=== PATIENT | male | born 1960 | race American Indian/Alaskan Native ===

== ENCOUNTER 2020-11-08 09:54 | Inpatient (IN) | payer OTHER ==
[2020-11-08] MEDS ORDERED: cefTRIAXone/NS 2 GM/100 ML 2 GM/100 ML BAG IV ONE (10:34)
[2020-11-08] MEDS ORDERED: AZITHROMYCIN/NS 500 MG/250 ML 500 MG/250 ML BAG IV ONE (10:34)
[2020-11-08] MEDS ORDERED: methylPREDNISolone Sod Succinate 125 MG/2 ML INJ IV ONE (10:40)
--- NOTE | 2020-11-08 10:44 | Emergency Department Report ---
ED Fever HPI - General Chief Complaint: Dyspnea/Respdistress Stated Complaint: SOB/COVID TEST NEGATIVE PUI?: Yes Time Seen by Provider: 11/08/20 10:24 Source: patient Exam Limitations: no limitations - History of Present Illness Initial Comments: Chief complaint: Trouble breathing not feeling well HPI: This is a 60-year-old healthy gentleman without significant past medical history who presents with fever chills fatigue shortness of breath cough since Wednesday. Gradual onset of illness 4 days ago. He obtained a saliva test for COVID-[address] a [address]-through center. Test was negative. He continued to have progression of symptoms including worsening shortness of breath and cough. He normally runs 6 to 7 miles daily. However he is unable to ambulate without severe shortness of breath. His brought him to the hospital. No known sick contacts. 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 He has had multiple contacts with customers. Oxygen saturation hypoxic at 89% room air in triage. Patient does not smoke tobacco. Timing/Duration: other (4 days beginning on Wednesday) Fever Severity/Quality: subjective Associated Symptoms: cough, shortness of breath, other (Fatigue) ED Review of Systems ROS: Stated complaint: SOB/COVID TEST NEGATIVE Other details as noted in HPI Comment: All other systems reviewed and negative Constitutional: chills, fever, malaise ENT: denies: throat pain Respiratory: cough, shortness of breath Cardiovascular: denies: chest pain Gastrointestinal: denies: abdominal pain, nausea, vomiting, diarrhea Neurological: denies: headache ED Past Medical Hx - Past Medical History Previous Medical History?: No - Surgical History Past Surgical History?: No - Social History Smoking Status: Never Smoker Substance Use Type: None ED Physical Exam - General Limitations: No Limitations General appearance: alert, in no apparent distress - Head Head exam: Present: atraumatic, normocephalic - Eye Eye exam: Present: normal appearance - ENT ENT exam: Present: mucous membranes moist - Neck Neck exam: Present: normal inspection, full ROM - Respiratory Respiratory exam: Present: rales (Faint rales inferior posterior thorax bilaterally). Absent: respiratory distress, wheezes - Cardiovascular Cardiovascular Exam: Present: regular rate, normal rhythm, normal heart sounds. Absent: systolic murmur, diastolic murmur, rubs, gallop - GI/Abdominal GI/Abdominal exam: Present: soft, normal bowel sounds. Absent: distended, tenderness, guarding, rebound - Rectal Rectal exam: Present: deferred - Extremities Exam Extremities exam: Present: normal inspection - Neurological Exam Neurological exam: Present: alert, oriented X3 - Psychiatric Psychiatric exam: Present: normal affect, normal mood - Skin Skin exam: Present: warm, dry, intact, normal color. Absent: rash ED Course Vital Signs 11/08/20 10:00 Temperature 98.3 F Pulse Rate 84 Respiratory 18 Rate Blood Pressure 104/78 O2 Sat by Pulse 89 Oximetry ED Medical Decision Making - Lab Data Result diagrams: 11/08/20 11:16 11/08/20 11:16 - Radiology Data Radiology results: report reviewed, image reviewed CHEST 1 VIEW INDICATION: shortness of breath. COMPARISON: None FINDINGS: Support devices: None. Heart: Within normal limits. Lungs/Pleura: Scattered bilateral lung opacities are identified. No pleural effusion or pneumothorax. Additional findings: None. IMPRESSION: Scattered bilateral lung opacities concerning for atypical pneumonia or viral infection - Medical Decision Making Acute respiratory failure hypoxia due to suspected COVID-19 infection. Patient treated with IV antibiotics and IV steroids in the emergency department. Appropriate precautions instituted I encouraged him to instruct his and work colleagues to obtain testing for COVID-19. Patient admitted to the hospital service in fair condition. Oxygen saturation 94% on nasal cannula. Upon lab review CBC chemistry within normal limits. Covid markers ferritin LDH CRP D-dimer all elevated. I do not suspect the presence of VTE at this moment. Patient does not have tachycardia or pleuritic chest pain. Patient does not have limb pain or swelling. Patient's oxygen saturation is currently 99% on nasal cannula. Critical care attestation.: If time is entered above; I have spent that time in minutes in the direct care of this critically ill patient, excluding procedure time. ED Disposition Clinical Impression: Acute respiratory failure with hypoxia, Suspected COVID-19 virus infection, Multifocal pneumonia Disposition: OP ADMIT IP TO THIS HOSP Is pt being admited?: Yes Does the pt Need Aspirin: No Condition: Stable Instructions: Bacterial Pneumonia (ED)
--- NOTE | 2020-11-08 10:53 | XRay Report ---
CHEST 1 VIEW INDICATION: shortness of breath. COMPARISON: None FINDINGS: Support devices: None. Heart: Within normal limits. Lungs/Pleura: Scattered bilateral lung opacities are identified. No pleural effusion or pneumothorax. Additional findings: None. IMPRESSION: Scattered bilateral lung opacities concerning for atypical pneumonia or viral infection. Signer Name: Jose Luis Kaur Jr, MD Signed: 11/08/2020 10:48 AM Workstation Name: [id number]
[2020-11-08 11:45] LABS: Basophils % (Auto) 0.1 % (0.0-1.8); Eosinophils % (Auto) 0.1 % (0.0-4.3); Hematocrit 43.4 % (35.5-45.6); Hemoglobin 14.3 gm/dl (11.8-15.2); Lymphocytes # (Auto) 0.5 K/mm3 (1.2-5.4); Lymphocytes % (Auto) 8.8 % (13.4-35.0); Mean Corpuscular HGB Conc 33 % (32-34); Mean Corpuscular Volume 85 fl (84-94); Monocytes # (Auto) 0.3 K/mm3 (0.0-0.8); Monocytes % (Auto) 4.8 % (0.0-7.3); Platelet Count 315 K/mm3 (140-440); Red Blood Count 5.11 M/mm3 (3.65-5.03); Red Cell Distribution Width 13.5 % (13.2-15.2)
[2020-11-08 12:10] LABS: C-Reactive Protein 12.1 mg/dL (0.00-1.30)
[2020-11-08 12:12] LABS: Alanine Aminotransferase 20 units/L (7-56); Albumin 3.1 g/dL (3.9-5); BUN/Creatinine Ratio 16; Blood Urea Nitrogen 16 mg/dL (9-20); Calcium 9.1 mg/dL (8.4-10.2); Hemolysis Index 1
--- NOTE | 2020-11-08 19:10 | History and Physical Report ---
History of Present Illness Date of examination: 11/08/20 Date of admission: 11/08/20 13:00 Chief complaint: Cough and fever History of present illness: 60-year-old healthy gentleman without significant past medical history who presents with fever chills fatigue shortness of breath cough since Wednesday- 10/28/20. Gradual onset of illness 4 days ago. He obtained a saliva test for COVID-19 at a drive-through center. Test was negative. He continued to have progression of symptoms including worsening shortness of breath and cough. He normally runs 6 to 7 miles daily. However he is unable to ambulate without severe shortness of breath. His brought him to the hospital. No known sick contacts. 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 He has had multiple co ntacts with customers. Oxygen saturation hypoxic at 89% room air in triage. Patient does not smoke tobacco. Timing/Duration: other (4 days beginning on Wednesday) Fever Severity/Quality: subjective Associated Symptoms: cough, shortness of breath, other (Fatigue) - Past Medical History Previous Medical History?: No - Surgical History Past Surgical History?: No - Social History Smoking Status: Never Smoker Substance Use Type: None Family Hx Htn Review of Systems ROS: Stated complaint: SOB/COVID TEST NEGATIVE Other details as noted in HPI Comment: All other systems reviewed and negative Constitutional: chills, fever, malaise ENT: denies: throat pain Respiratory: cough, shortness of breath Cardiovascular: denies: chest pain Gastrointestinal: denies: abdominal pain, nausea, vomiting, diarrhea Neurological: denies: headache Medications and Allergies Allergies Allergy/AdvReac Type Severity Reaction Status Date / Time No Known Allergies Allergy Verified 11/09/20 03:17 Exam - Constitutional Vitals: Temp Pulse Resp BP Pulse Ox 98.3 F 84 18 104/78 89 11/08/20 10:00 11/08/20 10:00 11/08/20 10:00 11/08/20 10:00 11/08/20 10:00 General appearance: Present: mild distress, well-nourished - EENT Eyes: Present: PERRL ENT: hearing intact, clear oral mucosa - Neck Neck: Present: supple, normal ROM - Respiratory Respiratory effort: normal Respiratory: bilateral: CTA - Cardiovascular Heart rate: 98 Rhythm: regular Heart Sounds: Present: S1 & S2. Absent: rub, click - Extremities Extremities: pulses symmetrical, No edema Peripheral Pulses: within normal limits - Abdominal General gastrointestinal: Present: soft, non-tender, non-distended, normal bowel sounds Male genitourinary: Present: normal - Integumentary Integumentary: Present: clear, warm, dry - Musculoskeletal Musculoskeletal: gait normal, strength equal bilaterally - Psychiatric Psychiatric: appropriate mood/affect, intact judgment & insight - Neurologic Neurologic: CNII-XII intact, moves all extremities - Allied Health Allied health notes reviewed: nursing, case management HEART Score - HEART Score Troponin: Troponin T < 0.010 ng/mL (0.00-0.029) 11/08/20 11:16 Results - Labs CBC & Chem 7: 11/09/20 06:09 11/09/20 06:09 Labs: Laboratory Last Values WBC 5.4 K/mm3 (4.5-11.0) 11/08/20 11:16 RBC 5.11 M/mm3 (3.65-5.03) H 11/08/20 11:16 Hgb 14.3 gm/dl (11.8-15.2) 11/08/20 11:16 Hct 43.4 % (35.5-45.6) 11/08/20 11:16 MCV 85 fl (84-94) 11/08/20 11:16 MCH 28 pg (28-32) 11/08/20 11:16 MCHC 33 % (32-34) 11/08/20 11:16 RDW 13.5 % (13.2-15.2) 11/08/20 11:16 Plt Count 315 K/mm3 (140-440) 11/08/20 11:16 Lymph % (Auto) 8.8 % (13.4-35.0) L 11/08/20 11:16 [place] % (Auto) 4.8 % (0.0-7.3) 11/08/20 11:16 Eos % (Auto) 0.1 % (0.0-4.3) 11/08/20 11:16 Baso % (Auto) 0.1 % (0.0-1.8) 11/08/20 11:16 Lymph # (Auto) 0.5 K/mm3 (1.2-5.4) L 11/08/20 11:16 [place] # (Auto) 0.3 K/mm3 (0.0-0.8) 11/08/20 11:16 Eos # (Auto) 0.0 K/mm3 (0.0-0.4) 11/08/20 11:16 Baso # (Auto) 0.0 K/mm3 (0.0-0.1) 11/08/20 11:16 Seg Neutrophils % 86.2 % (40.0-70.0) H 11/08/20 11:16 Seg Neutrophils # 4.7 K/mm3 (1.8-7.7) 11/08/20 11:16 D-Dimer 510.39 ng/mlDDU (0-234) H 11/08/20 11:16 Sodium 139 mmol/L (137-145) 11/08/20 11:16 Potassium 4.1 mmol/L (3.6-5.0) 11/08/20 11:16 Chloride 100.4 mmol/L (98-107) 11/08/20 11:16 Carbon Dioxide 28 mmol/L (22-30) 11/08/20 11:16 Anion Gap 15 mmol/L 11/08/20 11:16 BUN 16 mg/dL (9-20) 11/08/20 11:16 Creatinine 1.0 mg/dL (0.8-1.3) 11/08/20 11:16 Estimated GFR > 60 ml/min 11/08/20 11:16 BUN/Creatinine Ratio 16 % 11/08/20 11:16 Glucose 100 mg/dL (75-100) 11/08/20 11:16 Calcium 9.1 mg/dL (8.4-10.2) 11/08/20 11:16 Ferritin 539.0 ng/mL (30.0-300.0) H 11/08/20 11:16 Total Bilirubin 0.30 mg/dL (0.1-1.2) 11/08/20 11:16 AST 29 units/L (5-40) 11/08/20 11:16 ALT 20 units/L (7-56) 11/08/20 11:16 Alkaline Phosphatase 44 units/L (35-129) 11/08/20 11:16 Lactate Dehydrogenase 426 units/L (91-180) H 11/08/20 11:16 Troponin T < 0.010 ng/mL (0.00-0.029) 11/08/20 11:16 C-Reactive Protein 12.10 mg/dL (0.00-1.30) H 11/08/20 11:16 Total Protein 6.9 g/dL (6.3-8.2) 11/08/20 11:16 Albumin 3.1 g/dL (3.9-5) L 11/08/20 11:16 Albumin/Globulin Ratio 0.8 % 11/08/20 11:16 Procalcitonin 0.17 ng/mL (<0.15) 11/08/20 11:16 Microbiology: Microbiology 11/08/20 11:25 Peripheral/Venous Blood Culture - Preliminary Culture in Progress 11/08/20 11:16 Peripheral/Venous Blood Culture - Preliminary Culture in Progress - Imaging and Cardiology Chest x-ray: report reviewed (Bilateral pneumonia) Harris/IV: IV Catheter Type [Left INT / Saline Lock Antecubital] Assessment and Plan Advance Directives: Yes - Patient Problems (1) Acute respiratory failure with hypoxia Current Visit: Yes Status: Acute Plan to address problem: Oxygen supplements as necessary (2) Multifocal pneumonia Current Visit: Yes Status: Acute Plan to address problem: possible covid pneumonia Empiric Abx started (3) Suspected COVID-19 virus infection Current Visit: Yes Status: Acute Plan to address problem: [place] virus pcr for AM IV Decadron started (4) DVT prophylaxis Current Visit: Yes Status: Acute Plan to address problem: On Lovenox 40 mg SQ Qhs
[2020-11-09] MEDS ORDERED: HYDROmorphone 1 MG/1 ML INJ IV PRN (03:11)
[2020-11-09] MEDS ORDERED: ONDANSETRON 4 MG/2 ML INJ IV PRN (03:11)
[2020-11-09] MEDS ORDERED: ACETAMINOPHEN 325 MG TAB PO PRN (03:11)
[2020-11-09] MEDS ORDERED: oxyCODONE /ACETAMINOPHEN 5-325MG TAB PO PRN (03:11)
[2020-11-09 06:29] LABS: Basophils % (Auto) 0.3 % (0.0-1.8); Hematocrit 43.5 % (35.5-45.6); Hemoglobin 14.3 gm/dl (11.8-15.2); Lymphocytes # (Auto) 0.6 K/mm3 (1.2-5.4); Lymphocytes % (Auto) 11.1 % (13.4-35.0); Mean Corpuscular HGB Conc 33 % (32-34); Mean Corpuscular Volume 86 fl (84-94); Monocytes # (Auto) 0.4 K/mm3 (0.0-0.8); Monocytes % (Auto) 7.6 % (0.0-7.3); Platelet Count 368 K/mm3 (140-440); Red Blood Count 5.09 M/mm3 (3.65-5.03); Red Cell Distribution Width 13.3 % (13.2-15.2)
[2020-11-09 06:51] LABS: BUN/Creatinine Ratio 23; Blood Urea Nitrogen 21 mg/dL (9-20); Calcium 8.9 mg/dL (8.4-10.2); Hemolysis Index 25
[2020-11-09] MEDS: cefTRIAXone/NS 2 GM/100 ML 2 GM/100 ML BAG IV SCH (09:01)
[2020-11-09] MEDS ORDERED: dexAMETHasone 4 MG/ML VIAL IV SCH (10:00)
--- NOTE | 2020-11-09 11:11 | Progress Note ---
Assessment and Plan - Patient Problems (1) Acute respiratory failure with hypoxia Current Visit: Yes Status: Acute Plan to address problem: Supplemental oxygen, pulse oximetry, nebulizer therapy, noninvasive positive pressure ventilation as clinically indicated. (2) Multifocal pneumonia Current Visit: Yes Status: Acute Plan to address problem: Pneumonia protocol: IV antibiotic therapy, CBC, supplemental oxygen, pulse oximetry, nebulizer therapy, supportive care. (3) Suspected COVID-19 virus infection Current Visit: Yes Status: Acute Plan to address problem: Contact precautions, isolation precautions, IV antibiotic therapy, IV steroid therapy, prone positioning while in bed, (4) DVT prophylaxis Current Visit: Yes Status: Acute Plan to address problem: SCD to bilateral lower extremities while in bed, prophylactic anticoagulation (5) Advance care planning Current Visit: Yes Status: Acute Plan to address problem: Disease education conducted, patient is full code, care plan discussed, prognosis discussed, patient knowledges understanding and agreement with care plan, +30 minutes. History Interval history: 60YO Male HD #2 with acute hypoxemic respiratory failure, coronavirus infection. Patient knowledges continued shortness of breath. Patient knowledges decreased exercise tolerance as well as dry cough. Patient denies fever at this time. No reported nursing events. Patient remains on submental oxygen at this time. Hospitalist Physical - Constitutional Vitals: Temp Pulse Resp BP Pulse Ox 98.7 F 55 L 18 110/71 93 11/09/20 03:50 11/09/20 03:50 11/09/20 03:50 11/09/20 03:50 11/09/20 03:50 General appearance: Present: mild distress, well-nourished - EENT Eyes: Present: PERRL, EOM intact - Neck Neck: Present: supple - Respiratory Respiratory effort: labored, accessory muscle use Respiratory: bilateral: diminished, rhonchi - Cardiovascular Rhythm: regular Heart Sounds: Present: S1 & S2 - Extremities Extremities: no ischemia Peripheral Pulses: within normal limits - Abdominal General gastrointestinal: soft, non-tender, non-distended - Integumentary Integumentary: Present: clear, dry - Psychiatric Psychiatric: appropriate mood/affect, cooperative - Neurologic Neurologic: CNII-XII intact HEART Score - HEART Score Troponin: Troponin T < 0.010 ng/mL (0.00-0.029) 11/08/20 11:16 Results - Labs CBC & Chem 7: 11/09/20 06:09 11/09/20 06:09 Labs: Laboratory Last Values WBC 5.0 K/mm3 (4.5-11.0) 11/09/20 06:09 RBC 5.09 M/mm3 (3.65-5.03) H 11/09/20 06:09 Hgb 14.3 gm/dl (11.8-15.2) 11/09/20 06:09 Hct 43.5 % (35.5-45.6) 11/09/20 06:09 MCV 86 fl (84-94) 11/09/20 06:09 MCH 28 pg (28-32) 11/09/20 06:09 MCHC 33 % (32-34) 11/09/20 06:09 RDW 13.3 % (13.2-15.2) 11/09/20 06:09 Plt Count 368 K/mm3 (140-440) 11/09/20 06:09 Lymph % (Auto) 11.1 % (13.4-35.0) L 11/09/20 06:09 [place] % (Auto) 7.6 % (0.0-7.3) H 11/09/20 06:09 Eos % (Auto) 0.0 % (0.0-4.3) 11/09/20 06:09 Baso % (Auto) 0.3 % (0.0-1.8) 11/09/20 06:09 Lymph # (Auto) 0.6 K/mm3 (1.2-5.4) L 11/09/20 06:09 [place] # (Auto) 0.4 K/mm3 (0.0-0.8) 11/09/20 06:09 Eos # (Auto) 0.0 K/mm3 (0.0-0.4) 11/09/20 06:09 Baso # (Auto) 0.0 K/mm3 (0.0-0.1) 11/09/20 06:09 Seg Neutrophils % 81.0 % (40.0-70.0) H 11/09/20 06:09 Seg Neutrophils # 4.0 K/mm3 (1.8-7.7) 11/09/20 06:09 D-Dimer 510.39 ng/mlDDU (0-234) H 11/08/20 11:16 Sodium 141 mmol/L (137-145) 11/09/20 06:09 Potassium 4.8 mmol/L (3.6-5.0) 11/09/20 06:09 Chloride 104.2 mmol/L (98-107) 11/09/20 06:09 Carbon Dioxide 23 mmol/L (22-30) 11/09/20 06:09 Anion Gap 19 mmol/L 11/09/20 06:09 BUN 21 mg/dL (9-20) H 11/09/20 06:09 Creatinine 0.9 mg/dL (0.8-1.3) 11/09/20 06:09 Estimated GFR > 60 ml/min 11/09/20 06:09 BUN/Creatinine Ratio 23 % 11/09/20 06:09 Glucose 104 mg/dL (75-100) H 11/09/20 06:09 Hemoglobin A1c 6.1 % (4-6) H 11/09/20 06:09 Calcium 8.9 mg/dL (8.4-10.2) 11/09/20 06:09 Ferritin 539.0 ng/mL (30.0-300.0) H 11/08/20 11:16 Total Bilirubin 0.30 mg/dL (0.1-1.2) 11/08/20 11:16 AST 29 units/L (5-40) 11/08/20 11:16 ALT 20 units/L (7-56) 11/08/20 11:16 Alkaline Phosphatase 44 units/L (35-129) 11/08/20 11:16 Lactate Dehydrogenase 426 units/L (91-180) H 11/08/20 11:16 Troponin T < 0.010 ng/mL (0.00-0.029) 11/08/20 11:16 C-Reactive Protein 12.10 mg/dL (0.00-1.30) H 11/08/20 11:16 Total Protein 6.9 g/dL (6.3-8.2) 11/08/20 11:16 Albumin 3.1 g/dL (3.9-5) L 11/08/20 11:16 Albumin/Globulin Ratio 0.8 % 11/08/20 11:16 Procalcitonin 0.17 ng/mL (<0.15) 11/08/20 11:16 Microbiology: Microbiology 11/08/20 11:25 Peripheral/Venous Blood Culture - Preliminary Culture in Progress 11/08/20 11:16 Peripheral/Venous Blood Culture - Preliminary Culture in Progress Harris/IV: Voiding Method Toilet IV Catheter Type [Left INT / Saline Lock Antecubital] Active Medications - Current Medications Current Medications: Generic Name Dose Route Start Last Admin Trade Name Freq PRN Reason Stop Dose Admin Acetaminophen 650 mg 11/09/20 03:11 Acetaminophen 325 Mg Tab PO Q4H PRN Pain MILD(1-3)/Fever >100.5/BRITO Ascorbic Acid 1,000 mg 11/09/20 11:00 Ascorbic Acid 500 Mg Tab PO BID [facility] Cholecalciferol 5,000 unit 11/09/20 11:00 Cholecalciferol (Vit D3) 5,000 Unit Tab PO DAILY [facility] Dexamethasone 8 mg 11/09/20 10:00 11/09/20 09:01 Dexamethasone 4 Mg/Ml Vial IV 8 mg Q24HR [facility] Administration Hydromorphone HCl 0.5 mg 11/09/20 03:11 Hydromorphone 1 Mg/1 Ml Inj IV Q3H PRN Pain , Severe (7-10) Ceftriaxone Sodium 2 gm in 100 mls @ 200 mls/hr 11/09/20 10:00 11/09/20 09:01 Rocephin/Ns 2 Gm/100 Ml IV 200 mls/hr Q24HR [facility] Administration Protocol Azithromycin 500 mg in 250 mls @ 250 mls/hr 11/09/20 12:00 Zithromax/Ns IV Q24H [facility] Ondansetron HCl 4 mg 11/09/20 03:11 Ondansetron 4 Mg/2 Ml Inj IV Q8H PRN Nausea And Vomiting Oxycodone/Acetaminophen 1 tab 11/09/20 03:11 Oxycodone /Acetaminophen 5-325mg Tab PO Q6H PRN Pain, Moderate (4-6) Sodium Chloride 10 ml 11/09/20 10:00 11/09/20 09:08 Sodium Chloride 0.9% 10 Ml Flush Syringe IV 10 ml BID NURA Administration Sodium Chloride 10 ml 11/09/20 03:11 Sodium Chloride 0.9% 10 Ml Flush Syringe IV PRN PRN LINE FLUSH Zinc Sulfate 220 mg 11/09/20 11:00 Zinc Sulfate 220 Mg Cap PO BID [facility]
[2020-11-09] MEDS ORDERED: methylPREDNISolone Sod Succinate 40 MG/1 ML INJ IV SCH (14:00)
[2020-11-09] MEDS: ZINC SULFATE 220 MG CAP PO SCH ×2 (15:21→21:19)
[2020-11-09] MEDS: CHOLECALCIFEROL (VIT D3) 5,000 UNIT TAB PO SCH (15:21)
[2020-11-09] MEDS: AZITHROMYCIN/NS 500 MG/250 ML 500 MG/250 ML BAG IV SCH (15:22)
[2020-11-09] MEDS: ASCORBIC ACID 500 MG TAB PO SCH ×2 (15:22→21:19)
[2020-11-09] MEDS: methylPREDNISolone Sod Succinate 40 MG/1 ML INJ IV SCH (21:19)
[2020-11-09] MEDS: HEPARIN 5,000 UNIT/1 ML VIAL SUB-Q SCH (21:20)
[2020-11-10] MEDS: methylPREDNISolone Sod Succinate 40 MG/1 ML INJ IV SCH ×3 (06:07→23:17)
--- NOTE | 2020-11-10 11:46 | Progress Note ---
Assessment and Plan - Patient Problems (1) Acute respiratory failure with hypoxia Current Visit: Yes Status: Acute Plan to address problem: Supplemental oxygen, pulse oximetry, nebulizer therapy, noninvasive positive pressure ventilation as clinically indicated. (2) Multifocal pneumonia Current Visit: Yes Status: Acute Plan to address problem: Pneumonia protocol: IV antibiotic therapy, CBC, supplemental oxygen, pulse oximetry, nebulizer therapy, supportive care. (3) Suspected COVID-19 virus infection Current Visit: Yes Status: Acute Plan to address problem: Contact precautions, isolation precautions, IV antibiotic therapy, IV steroid therapy, prone positioning while in bed, (4) DVT prophylaxis Current Visit: Yes Status: Acute Plan to address problem: SCD to bilateral lower extremities while in bed, prophylactic anticoagulation (5) Advance care planning Current Visit: Yes Status: Acute Plan to address problem: Disease education conducted, patient is full code, care plan discussed, prognosis discussed, patient knowledges understanding and agreement with care plan, +30 minutes. History Interval history: 60YO Male HD #3 with acute hypoxemic respiratory failure, coronavirus infection. Patient still acknowledges continued shortness of breath. Patient acknowledges mild improvement in symptoms overnight.. Patient denies fever at this time. No reported nursing events. Patient remains on supplemental oxygen at this time. Hospitalist Physical - Constitutional Vitals: Temp Pulse Resp BP Pulse Ox 98.7 F 52 L 20 115/69 95 11/10/20 06:22 11/10/20 06:22 11/10/20 06:22 11/10/20 06:22 11/10/20 06:22 General appearance: Present: mild distress, well-nourished - EENT Eyes: Present: PERRL, EOM intact ENT: hearing intact - Neck Neck: Present: supple - Respiratory Respiratory effort: labored Respiratory: bilateral: diminished, rhonchi - Cardiovascular Rhythm: regular Heart Sounds: Present: S1 & S2 - Extremities Extremities: no ischemia Peripheral Pulses: within normal limits - Abdominal General gastrointestinal: soft, non-tender, non-distended - Integumentary Integumentary: Present: clear, dry - Psychiatric Psychiatric: appropriate mood/affect, cooperative - Neurologic Neurologic: CNII-XII intact HEART Score - HEART Score Troponin: Troponin T < 0.010 ng/mL (0.00-0.029) 11/08/20 11:16 Results - Labs CBC & Chem 7: 11/09/20 06:09 11/09/20 06:09 Labs: Laboratory Last Values WBC 5.0 K/mm3 (4.5-11.0) 11/09/20 06:09 RBC 5.09 M/mm3 (3.65-5.03) H 11/09/20 06:09 Hgb 14.3 gm/dl (11.8-15.2) 11/09/20 06:09 Hct 43.5 % (35.5-45.6) 11/09/20 06:09 MCV 86 fl (84-94) 11/09/20 06:09 MCH 28 pg (28-32) 11/09/20 06:09 MCHC 33 % (32-34) 11/09/20 06:09 RDW 13.3 % (13.2-15.2) 11/09/20 06:09 Plt Count 368 K/mm3 (140-440) 11/09/20 06:09 Lymph % (Auto) 11.1 % (13.4-35.0) L 11/09/20 06:09 [place] % (Auto) 7.6 % (0.0-7.3) H 11/09/20 06:09 Eos % (Auto) 0.0 % (0.0-4.3) 11/09/20 06:09 Baso % (Auto) 0.3 % (0.0-1.8) 11/09/20 06:09 Lymph # (Auto) 0.6 K/mm3 (1.2-5.4) L 11/09/20 06:09 [place] # (Auto) 0.4 K/mm3 (0.0-0.8) 11/09/20 06:09 Eos # (Auto) 0.0 K/mm3 (0.0-0.4) 11/09/20 06:09 Baso # (Auto) 0.0 K/mm3 (0.0-0.1) 11/09/20 06:09 Seg Neutrophils % 81.0 % (40.0-70.0) H 11/09/20 06:09 Seg Neutrophils # 4.0 K/mm3 (1.8-7.7) 11/09/20 06:09 D-Dimer 510.39 ng/mlDDU (0-234) H 11/08/20 11:16 Sodium 141 mmol/L (137-145) 11/09/20 06:09 Potassium 4.8 mmol/L (3.6-5.0) 11/09/20 06:09 Chloride 104.2 mmol/L (98-107) 11/09/20 06:09 Carbon Dioxide 23 mmol/L (22-30) 11/09/20 06:09 Anion Gap 19 mmol/L 11/09/20 06:09 BUN 21 mg/dL (9-20) H 11/09/20 06:09 Creatinine 0.9 mg/dL (0.8-1.3) 11/09/20 06:09 Estimated GFR > 60 ml/min 11/09/20 06:09 BUN/Creatinine Ratio 23 % 11/09/20 06:09 Glucose 104 mg/dL (75-100) H 11/09/20 06:09 Hemoglobin A1c 6.1 % (4-6) H 11/09/20 06:09 Calcium 8.9 mg/dL (8.4-10.2) 11/09/20 06:09 Ferritin 539.0 ng/mL (30.0-300.0) H 11/08/20 11:16 Total Bilirubin 0.30 mg/dL (0.1-1.2) 11/08/20 11:16 AST 29 units/L (5-40) 11/08/20 11:16 ALT 20 units/L (7-56) 11/08/20 11:16 Alkaline Phosphatase 44 units/L (35-129) 11/08/20 11:16 Lactate Dehydrogenase 426 units/L (91-180) H 11/08/20 11:16 Troponin T < 0.010 ng/mL (0.00-0.029) 11/08/20 11:16 C-Reactive Protein 12.10 mg/dL (0.00-1.30) H 11/08/20 11:16 Total Protein 6.9 g/dL (6.3-8.2) 11/08/20 11:16 Albumin 3.1 g/dL (3.9-5) L 11/08/20 11:16 Albumin/Globulin Ratio 0.8 % 11/08/20 11:16 Procalcitonin 0.17 ng/mL (<0.15) 11/08/20 11:16 Coronavirus (PCR) Positive (Negative) A 11/09/20 10:25 Microbiology: Microbiology 11/08/20 11:16 Peripheral/Venous Blood Culture - Preliminary NO GROWTH AFTER 48 HOURS 11/08/20 11:25 Peripheral/Venous Blood Culture - Preliminary NO GROWTH AFTER 48 HOURS Harris/IV: Voiding Method Toilet IV Catheter Type [Left INT / Saline Lock Antecubital] Active Medications - Current Medications Current Medications: Generic Name Dose Route Start Last Admin Trade Name Freq PRN Reason Stop Dose Admin Acetaminophen 650 mg 11/09/20 03:11 Acetaminophen 325 Mg Tab PO Q4H PRN Pain MILD(1-3)/Fever >100.5/BRITO Ascorbic Acid 1,000 mg 11/09/20 11:00 11/09/20 21:19 Ascorbic Acid 500 Mg Tab PO 1,000 mg BID NURA Administration Cholecalciferol 5,000 unit 11/09/20 11:00 11/09/20 15:21 Cholecalciferol (Vit D3) 5,000 Unit Tab PO 5,000 unit DAILY NURA Administration Heparin Sodium (Porcine) 5,000 unit 11/09/20 22:00 11/09/20 21:20 Heparin 5,000 Unit/1 Ml Vial SUB-Q 5,000 unit Q12HR NURA Administration Hydromorphone HCl 0.5 mg 11/09/20 03:11 Hydromorphone 1 Mg/1 Ml Inj IV Q3H PRN Pain , Severe (7-10) Ceftriaxone Sodium 2 gm in 100 mls @ 200 mls/hr 11/09/20 10:00 11/09/20 09:01 Rocephin/Ns 2 Gm/100 Ml IV 200 mls/hr Q24HR NURA Administration Protocol Azithromycin 500 mg in 250 mls @ 250 mls/hr 11/09/20 12:00 11/09/20 15:22 Zithromax/Ns IV 250 mls/hr Q24H NURA Administration Methylprednisolone Sodium Succinate 40 mg 11/09/20 22:00 11/10/20 06:07 Methylprednisolone Sod Succinate 40 Mg/1 Ml Inj IV 40 mg Q8HR NURA Administration Ondansetron HCl 4 mg 11/09/20 03:11 Ondansetron 4 Mg/2 Ml Inj IV Q8H PRN Nausea And Vomiting Oxycodone/Acetaminophen 1 tab 11/09/20 03:11 Oxycodone /Acetaminophen 5-325mg Tab PO Q6H PRN Pain, Moderate (4-6) Sodium Chloride 10 ml 11/09/20 10:00 11/09/20 21:20 Sodium Chloride 0.9% 10 Ml Flush Syringe IV 10 ml BID NURA Administration Sodium Chloride 10 ml 11/09/20 03:11 Sodium Chloride 0.9% 10 Ml Flush Syringe IV PRN PRN LINE FLUSH Zinc Sulfate 220 mg 11/09/20 11:00 11/09/20 21:19 Zinc Sulfate 220 Mg Cap PO 220 mg BID NURA Administration
[2020-11-10] MEDS: CHOLECALCIFEROL (VIT D3) 5,000 UNIT TAB PO SCH (12:17)
[2020-11-10] MEDS: ASCORBIC ACID 500 MG TAB PO SCH ×2 (12:17→23:17)
[2020-11-10] MEDS: cefTRIAXone/NS 2 GM/100 ML 2 GM/100 ML BAG IV SCH (12:17)
[2020-11-10] MEDS: ZINC SULFATE 220 MG CAP PO SCH ×2 (12:17→23:18)
[2020-11-10] MEDS: HEPARIN 5,000 UNIT/1 ML VIAL SUB-Q SCH ×2 (12:18→23:16)
[2020-11-10] MEDS: AZITHROMYCIN/NS 500 MG/250 ML 500 MG/250 ML BAG IV SCH (13:17)
[2020-11-11] MEDS: methylPREDNISolone Sod Succinate 40 MG/1 ML INJ IV SCH ×3 (05:39→22:39)
[2020-11-11] MEDS: cefTRIAXone/NS 2 GM/100 ML 2 GM/100 ML BAG IV SCH (11:06)
[2020-11-11] MEDS: HEPARIN 5,000 UNIT/1 ML VIAL SUB-Q SCH ×2 (11:06→22:39)
[2020-11-11] MEDS: CHOLECALCIFEROL (VIT D3) 5,000 UNIT TAB PO SCH (11:06)
[2020-11-11] MEDS: ASCORBIC ACID 500 MG TAB PO SCH ×2 (11:06→22:39)
[2020-11-11] MEDS: ZINC SULFATE 220 MG CAP PO SCH ×2 (11:06→22:39)
[2020-11-11] MEDS: AZITHROMYCIN/NS 500 MG/250 ML 500 MG/250 ML BAG IV SCH (13:07)
--- NOTE | 2020-11-11 14:02 | Consultation ---
History of Present Illness - Reason for Consult Consult date: 11/11/20 COVID/hypoxia Requesting physician: ANA PAULA RODARTE - History of Present Illness 60 years old male without any significant medical history, admitted on 11/08/2020 secondary to 2-week history of cough and progressive shortness of breath associated with chills, fatigue. Initial COVID-19 saliva test was negative. Patient usually runs 6 to 7 miles a day. However patient is now short of breath with ambulation. On arrival, temperature 98.3, HR 84, RR 18, O2 sat 89%, BP 104/78. Initial CBC normal. Chemistry normal. D-dimer 510. Ferritin 539. Patient currently on 3 L nasal cannula. Blood culture no growth today. Chest x-ray with bilateral lung opacities. Review of Systems: reviewed ED and H&P notes. Review of system deferred to minimize COVID-19 transmission. Medications and Allergies Allergies Allergy/AdvReac Type Severity Reaction Status Date / Time No Known Allergies Allergy Verified 11/09/20 03:17 Home Medications Medication Instructions Recorded Confirmed Last Taken Type No Known Home Medications [No 11/09/20 11/09/20 Unknown History Reported Home Medications] Active Meds: Active Medications Acetaminophen (Acetaminophen 325 Mg Tab) 650 mg PO Q4H PRN PRN Reason: Pain MILD(1-3)/Fever >100.5/BRITO Ascorbic Acid (Ascorbic Acid 500 Mg Tab) 1,000 mg PO BID [facility] Last Admin: 11/11/20 11:06 Dose: 1,000 mg Documented by: Cholecalciferol (Cholecalciferol (Vit D3) 5,000 Unit Tab) 5,000 unit PO DAILY [facility] Last Admin: 11/11/20 11:06 Dose: 5,000 unit Documented by: Guaifenesin (Guaifenesin Dm 200/20 Mg Oral Liqd 10 Ml) 20 ml PO Q4H PRN PRN Reason: Cough Heparin Sodium (Porcine) (Heparin 5,000 Unit/1 Ml Vial) 5,000 unit SUB-Q Q12HR [facility] Last Admin: 11/11/20 11:06 Dose: 5,000 unit Documented by: Hydromorphone HCl (Hydromorphone 1 Mg/1 Ml Inj) 0.5 mg IV Q3H PRN PRN Reason: Pain , Severe (7-10) Ceftriaxone Sodium (Rocephin/Ns 2 Gm/100 Ml) 2 gm in 100 mls @ 200 mls/hr IV Q24HR [facility]; Protocol Stop: 11/12/20 10:29 Last Admin: 11/11/20 11:06 Dose: 200 mls/hr Documented by: Azithromycin (Zithromax/Ns) 500 mg in 250 mls @ 250 mls/hr IV Q24H [facility] Stop: 11/12/20 12:59 Last Admin: 11/11/20 13:07 Dose: 250 mls/hr Documented by: Methylprednisolone Sodium Succinate (Methylprednisolone Sod Succinate 40 Mg/1 Ml Inj) 40 mg IV Q8HR [facility] Last Admin: 11/11/20 13:07 Dose: 40 mg Documented by: Ondansetron HCl (Ondansetron 4 Mg/2 Ml Inj) 4 mg IV Q8H PRN PRN Reason: Nausea And Vomiting Oxycodone/Acetaminophen (Oxycodone /Acetaminophen 5-325mg Tab) 1 tab PO Q6H PRN PRN Reason: Pain, Moderate (4-6) Sodium Chloride (Sodium Chloride 0.9% 10 Ml Flush Syringe) 10 ml IV BID [facility] Last Admin: 11/11/20 11:07 Dose: 10 ml Documented by: Sodium Chloride (Sodium Chloride 0.9% 10 Ml Flush Syringe) 10 ml IV PRN PRN PRN Reason: LINE FLUSH Zinc Sulfate (Zinc Sulfate 220 Mg Cap) 220 mg PO BID [facility] Last Admin: 11/11/20 11:06 Dose: 220 mg Documented by: Physical Examination - Physical Exam Narrative exam: Physical exam deferred to minimize COVID-19 transmission during pandemic. ER and internal medicine physical examination notes reviewed. - Constitutional Vitals: Vital Signs Temp Pulse Resp BP Pulse Ox 98.4 F 65 22 96/52 90 11/11/20 11:04 11/11/20 11:04 11/11/20 11:04 11/11/20 11:04 11/11/20 11:04 Temperature -Last 24 Hours Temperature 98.4 F Temperature 98.6 F Temperature 98.3 F Results - Labs CBC & Chem 7: 11/09/20 06:09 11/09/20 06:09 Assessment and Plan Cultures: Blood culture no growth today SARS CoV2 PCR positive Assessment: 60 years old male without any significant medical history, admitted on 11/08/2020 secondary to 2-week history of cough and progressive shortness of breath associated with chills, generalized malaise: #Severe COVID pneumonia: Chest x-ray with bilateral infiltrates. Inflammatory markers mildly elevated, D-dimer 510. #Acute hypoxemic respiratory failure: O2 sats dropped to 89%, patient currently on 3 L. Recommendations: -Evaluation for PE and DVT -Continue steroids IV/PO daily for 10 days -Start Remdesivir for 5 days (CrCl>30 mg/mL) -Monitor inflammatory markers - ferritin, Ddimer, CRP, LDH -Monitor liver function test on Remdesivir -Continue anticoagulation per System Protocol -Prone positioning as possible -Obtain SARS CoV-2 IgG to determine length of infection -Stop ceftriaxone and azithromycin, procalcitonin <0.25 ng/mL All laboratory, cultures and imaging were reviewed. Will follow Brittani Rice MD Infectious Diseases [employer] [facility] M [phone] O [phone]
[2020-11-11] MEDS: guaiFENesin DM 200/20 MG ORAL LIQD 10 ML PO PRN (14:32)
[2020-11-11] MEDS ORDERED: REMDESIVIR 200 MG in SODIUM CHLORIDE 0.9% 250ML 250 ML IV ONE (15:00)
[2020-11-11] MEDS ORDERED: REMDESIVIR 100 MG VIAL IV ONE (15:00)
[2020-11-11] MEDS: SODIUM CHLORIDE 0.9% 50 ML IVPB IV SCH (15:42)
--- NOTE | 2020-11-11 15:53 | Progress Note ---
Assessment and Plan Assessment and plan: 60YO Male with acute hypoxemic respiratory failure, coronavirus infection. Patient still acknowledges continued shortness of breath. Patient acknowledges mild improvement in symptoms overnight.. Patient denies fever at this time. No reported nursing events. Patient remains on supplemental oxygen at this time. 11/11: Patient remains with shortness of breath and cough. Exertional dyspnea. Was noted on oxygen at 5 L today. Will bring down to 2 L and reevaluate. Home O2 eval in a.m. Will obtain ID consultation because patient still with hypoxia likely will need to be on remdesivir. We will continue the steroid therapy at this time. Plan discussed with the patient he verbalized understanding. Also discussed with ID. (1) Acute respiratory failure with hypoxia Current Visit: Yes Status: Acute Plan to address problem: Supplemental oxygen, pulse oximetry, nebulizer therapy, noninvasive positive pressure ventilation as clinically indicated. (2) Multifocal pneumonia Current Visit: Yes Status: Acute Plan to address problem: Pneumonia protocol: IV antibiotic therapy, CBC, supplemental oxygen, pulse oximetry, nebulizer therapy, supportive care. (3) Suspected COVID-19 virus infection Current Visit: Yes Status: Acute Plan to address problem: Contact precautions, isolation precautions, IV antibiotic therapy, IV steroid therapy, prone positioning while in bed, (4) DVT prophylaxis Current Visit: Yes Status: Acute Plan to address problem: SCD to bilateral lower extremities while in bed, prophylactic anticoagulation (5) Advance care planning Current Visit: Yes Status: Acute Plan to address problem: Disease education conducted, patient is full code, care plan discussed, prognosis discussed, patient knowledges understanding and agreement with care plan, +30 minutes. History Interval history: Patient seen and examined still with shortness of breath and cough Hospitalist Physical - Physical exam Narrative exam: General appearance: Present: mild distress, well-nourished - EENT Eyes: Present: PERRL, EOM intact ENT: hearing intact - Neck Neck: Present: supple - Respiratory Respiratory effort: labored Respiratory: bilateral: diminished, rhonchi - Cardiovascular Rhythm: regular Heart Sounds: Present: S1 & S2 - Extremities Extremities: no ischemia Peripheral Pulses: within normal limits - Abdominal General gastrointestinal: soft, non-tender, non-distended - Integumentary Integumentary: Present: clear, dry - Psychiatric Psychiatric: appropriate mood/affect, cooperative - Neurologic Neurologic: CNII-XII intact - Constitutional Vitals: Temp Pulse Resp BP Pulse Ox 98.4 F 65 22 96/52 90 11/11/20 11:04 11/11/20 11:04 11/11/20 11:04 11/11/20 11:04 11/11/20 11:04 General appearance: Present: mild distress, well-nourished HEART Score - HEART Score Troponin: Troponin T < 0.010 ng/mL (0.00-0.029) 11/08/20 11:16 Results - Labs CBC & Chem 7: 11/09/20 06:09 11/09/20 06:09 Labs: Laboratory Last Values WBC 5.0 K/mm3 (4.5-11.0) 11/09/20 06:09 RBC 5.09 M/mm3 (3.65-5.03) H 11/09/20 06:09 Hgb 14.3 gm/dl (11.8-15.2) 11/09/20 06:09 Hct 43.5 % (35.5-45.6) 11/09/20 06:09 MCV 86 fl (84-94) 11/09/20 06:09 MCH 28 pg (28-32) 11/09/20 06:09 MCHC 33 % (32-34) 11/09/20 06:09 RDW 13.3 % (13.2-15.2) 11/09/20 06:09 Plt Count 368 K/mm3 (140-440) 11/09/20 06:09 Lymph % (Auto) 11.1 % (13.4-35.0) L 11/09/20 06:09 [place] % (Auto) 7.6 % (0.0-7.3) H 11/09/20 06:09 Eos % (Auto) 0.0 % (0.0-4.3) 11/09/20 06:09 Baso % (Auto) 0.3 % (0.0-1.8) 11/09/20 06:09 Lymph # (Auto) 0.6 K/mm3 (1.2-5.4) L 11/09/20 06:09 [place] # (Auto) 0.4 K/mm3 (0.0-0.8) 11/09/20 06:09 Eos # (Auto) 0.0 K/mm3 (0.0-0.4) 11/09/20 06:09 Baso # (Auto) 0.0 K/mm3 (0.0-0.1) 11/09/20 06:09 Seg Neutrophils % 81.0 % (40.0-70.0) H 11/09/20 06:09 Seg Neutrophils # 4.0 K/mm3 (1.8-7.7) 11/09/20 06:09 D-Dimer 510.39 ng/mlDDU (0-234) H 11/08/20 11:16 Sodium 141 mmol/L (137-145) 11/09/20 06:09 Potassium 4.8 mmol/L (3.6-5.0) 11/09/20 06:09 Chloride 104.2 mmol/L (98-107) 11/09/20 06:09 Carbon Dioxide 23 mmol/L (22-30) 11/09/20 06:09 Anion Gap 19 mmol/L 11/09/20 06:09 BUN 21 mg/dL (9-20) H 11/09/20 06:09 Creatinine 0.9 mg/dL (0.8-1.3) 11/09/20 06:09 Estimated GFR > 60 ml/min 11/09/20 06:09 BUN/Creatinine Ratio 23 % 11/09/20 06:09 Glucose 104 mg/dL (75-100) H 11/09/20 06:09 Hemoglobin A1c 6.1 % (4-6) H 11/09/20 06:09 Calcium 8.9 mg/dL (8.4-10.2) 11/09/20 06:09 Ferritin 539.0 ng/mL (30.0-300.0) H 11/08/20 11:16 Total Bilirubin 0.30 mg/dL (0.1-1.2) 11/08/20 11:16 AST 29 units/L (5-40) 11/08/20 11:16 ALT 20 units/L (7-56) 11/08/20 11:16 Alkaline Phosphatase 44 units/L (35-129) 11/08/20 11:16 Lactate Dehydrogenase 426 units/L (91-180) H 11/08/20 11:16 Troponin T < 0.010 ng/mL (0.00-0.029) 11/08/20 11:16 C-Reactive Protein 12.10 mg/dL (0.00-1.30) H 11/08/20 11:16 Total Protein 6.9 g/dL (6.3-8.2) 11/08/20 11:16 Albumin 3.1 g/dL (3.9-5) L 11/08/20 11:16 Albumin/Globulin Ratio 0.8 % 11/08/20 11:16 Procalcitonin 0.17 ng/mL (<0.15) 11/08/20 11:16 Coronavirus (PCR) Positive (Negative) A 11/09/20 10:25 Microbiology: Microbiology 11/08/20 11:16 Peripheral/Venous Blood Culture - Preliminary NO GROWTH AFTER 72 HOURS 11/08/20 11:25 Peripheral/Venous Blood Culture - Preliminary NO GROWTH AFTER 72 HOURS Harris/IV: Voiding Method Toilet IV Catheter Type [Left INT / Saline Lock Antecubital] Active Medications - Current Medications Current Medications: Generic Name Dose Route Start Last Admin Trade Name Freq PRN Reason Stop Dose Admin Acetaminophen 650 mg 11/09/20 03:11 Acetaminophen 325 Mg Tab PO Q4H PRN Pain MILD(1-3)/Fever >100.5/BRITO Ascorbic Acid 1,000 mg 11/09/20 11:00 11/11/20 11:06 Ascorbic Acid 500 Mg Tab PO 1,000 mg BID NURA Administration Cholecalciferol 5,000 unit 11/09/20 11:00 11/11/20 11:06 Cholecalciferol (Vit D3) 5,000 Unit Tab PO 5,000 unit DAILY NURA Administration Guaifenesin 20 ml 11/11/20 11:05 11/11/20 14:32 Guaifenesin Dm 200/20 Mg Oral Liqd 10 Ml PO 20 ml Q4H PRN Administration Cough Heparin Sodium (Porcine) 5,000 unit 11/09/20 22:00 11/11/20 11:06 Heparin 5,000 Unit/1 Ml Vial SUB-Q 5,000 unit Q12HR NURA Administration Hydromorphone HCl 0.5 mg 11/09/20 03:11 Hydromorphone 1 Mg/1 Ml Inj IV Q3H PRN Pain , Severe (7-10) Ceftriaxone Sodium 2 gm in 100 mls @ 200 mls/hr 11/09/20 10:00 11/11/20 11:06 Rocephin/Ns 2 Gm/100 Ml IV 11/12/20 10:29 200 mls/hr Q24HR NURA Administration Protocol Azithromycin 500 mg in 250 mls @ 250 mls/hr 11/09/20 12:00 11/11/20 13:07 Zithromax/Ns IV 11/12/20 12:59 250 mls/hr Q24H NURA Administration REMDESIVIR 100 mg/ Sodium 250 mls @ 500 mls/hr 11/12/20 21:00 Chloride IV 11/15/20 21:29 Q24HR@2100 NURA Methylprednisolone Sodium Succinate 40 mg 11/09/20 22:00 11/11/20 13:07 Methylprednisolone Sod Succinate 40 Mg/1 Ml Inj IV 40 mg Q8HR NURA Administration Ondansetron HCl 4 mg 11/09/20 03:11 Ondansetron 4 Mg/2 Ml Inj IV Q8H PRN Nausea And Vomiting Oxycodone/Acetaminophen 1 tab 11/09/20 03:11 Oxycodone /Acetaminophen 5-325mg Tab PO Q6H PRN Pain, Moderate (4-6) Sodium Chloride 10 ml 11/09/20 10:00 11/11/20 11:07 Sodium Chloride 0.9% 10 Ml Flush Syringe IV 10 ml BID NURA Administration Sodium Chloride 10 ml 11/09/20 03:11 Sodium Chloride 0.9% 10 Ml Flush Syringe IV PRN PRN LINE FLUSH Sodium Chloride 50 ml 11/11/20 15:00 11/11/20 15:42 Sodium Chloride 0.9% 50 Ml Ivpb IV 11/14/20 21:01 50 ml Q24HR@2100 NURA Administration Zinc Sulfate 220 mg 11/09/20 11:00 11/11/20 11:06 Zinc Sulfate 220 Mg Cap PO 220 mg BID NURA Administration
[2020-11-12] MEDS: SODIUM CHLORIDE 0.9% 50 ML IVPB IV SCH ×2 (00:07→22:22)
--- NOTE | 2020-11-12 00:26 | Cat Scan Report ---
CTA CHEST WITH IV CONTRAST INDICATION: Shortness of breath CONTRAST: 100 cc Omnipaque 350 IV COMPARISON: Portable chest x-ray 11/08/2020 Three-plane MIP reconstructions were produced. All CT scans at this location are performed using CT d ose reduction for ALARA by means of automated exposure control. FINDINGS: No significant axillary or chest wall abnormalities are seen. No mediastinal or hilar astrid s are noted. Visualized portions of the upper abdomen show a left renal cyst but no acute abnormaliti es. No pleural effusions are seen. No pneumothorax or pneumomediastinum are noted. No obvious endobro nchial lesions are seen. Bilateral moderate patchy areas of interstitial infiltrate are seen involving all lobes consistent wi th interstitial pneumonitis. Mild lower lobe atelectatic changes are seen. Aorta is not opacified for internal evaluation but no aneurysmal dilatation is seen. Good opacification of the pulmonary arterial system was achieved. I do not see evidence of pulmonary thromboembolism. IMPRESSION: 1. No evidence of pulmonary thromboembolism 2. Moderate bilateral interstitial pneumonitis which certainly could include viral pneumonitis Signer Name: Al Yu MD Signed: 11/12/2020 12:22 AM Workstation Name: [id number]
[2020-11-12] MEDS: guaiFENesin DM 200/20 MG ORAL LIQD 10 ML PO PRN ×3 (00:35→18:21)
[2020-11-12] MEDS: methylPREDNISolone Sod Succinate 40 MG/1 ML INJ IV SCH ×3 (05:58→22:22)
--- NOTE | 2020-11-12 08:12 | Progress Note ---
Assessment and Plan Assessment and plan: 60YO Male with acute hypoxemic respiratory failure, coronavirus infection. Patient still acknowledges continued shortness of breath. Patient acknowledges mild improvement in symptoms overnight.. Patient denies fever at this time. No reported nursing events. Patient remains on supplemental oxygen at this time. 11/11: Patient remains with shortness of breath and cough. Exertional dyspnea. Was noted on oxygen at 5 L today. Will bring down to 2 L and reevaluate. Home O2 eval in a.m. Will obtain ID consultation because patient still with hypoxia likely will need to be on remdesivir. We will continue the steroid therapy at this time. Plan discussed with the patient he verbalized understanding. Also discussed with ID. 11/12: ID input noted. Continue remdesivir. Continue steroids. Wean oxygen as tolerated. Will obtain home O2 eval in a.m. Cardiology consulted for bradycardia. CTA of the chest shows pneumonitis bilateral but no pulmonary embolism. Await ultrasound of the lower extremity to rule out DVT (1) Acute respiratory failure with hypoxia Current Visit: Yes Status: Acute Plan to address problem: Supplemental oxygen, pulse oximetry, nebulizer therapy, noninvasive positive pressure ventilation as clinically indicated. (2) Multifocal pneumonia Current Visit: Yes Status: Acute Plan to address problem: Pneumonia protocol: IV antibiotic therapy, CBC, supplemental oxygen, pulse oximetry, nebulizer therapy, supportive care. (3) Suspected COVID-19 virus infection Current Visit: Yes Status: Acute Plan to address problem: Contact precautions, isolation precautions, IV antibiotic therapy, IV steroid therapy, prone positioning while in bed, (4) secondary coagulopathy likely secondary to COVID-19 (5) Bradycardia (6) DVT prophylaxis Current Visit: Yes Status: Acute Plan to address problem: SCD to bilateral lower extremities while in bed, prophylactic anticoagulation (7) Advance care planning Current Visit: Yes Status: Acute Plan to address problem: Disease education conducted, patient is full code, care plan discussed, prognosis discussed, patient knowledges understanding and agreement with care plan, +30 minutes. History Interval history: Patient seen and examined still with shortness of breath and cough reports some improvement today. Hospitalist Physical - Physical exam Narrative exam: General appearance: Present: mild distress, well-nourished - EENT Eyes: Present: PERRL, EOM intact ENT: hearing intact - Neck Neck: Present: supple - Respiratory Respiratory effort: labored Respiratory: bilateral: diminished, rhonchi - Cardiovascular Rhythm: regular Heart Sounds: Present: S1 & S2 - Extremities Extremities: no ischemia Peripheral Pulses: within normal limits - Abdominal General gastrointestinal: soft, non-tender, non-distended - Integumentary Integumentary: Present: clear, dry - Psychiatric Psychiatric: appropriate mood/affect, cooperative - Neurologic Neurologic: CNII-XII intact - Constitutional Vitals: Temp Pulse Resp BP Pulse Ox 98.3 F 65 18 102/74 91 11/12/20 05:14 11/12/20 05:14 11/12/20 05:14 11/12/20 05:14 11/12/20 05:14 General appearance: Present: mild distress, well-nourished HEART Score - HEART Score Troponin: Troponin T < 0.010 ng/mL (0.00-0.029) 11/08/20 11:16 Results - Labs CBC & Chem 7: 11/09/20 06:09 11/12/20 09:27 Labs: Laboratory Last Values WBC 5.0 K/mm3 (4.5-11.0) 11/09/20 06:09 RBC 5.09 M/mm3 (3.65-5.03) H 11/09/20 06:09 Hgb 14.3 gm/dl (11.8-15.2) 11/09/20 06:09 Hct 43.5 % (35.5-45.6) 11/09/20 06:09 MCV 86 fl (84-94) 11/09/20 06:09 MCH 28 pg (28-32) 11/09/20 06:09 MCHC 33 % (32-34) 11/09/20 06:09 RDW 13.3 % (13.2-15.2) 11/09/20 06:09 Plt Count 368 K/mm3 (140-440) 11/09/20 06:09 Lymph % (Auto) 11.1 % (13.4-35.0) L 11/09/20 06:09 Franklin % (Auto) 7.6 % (0.0-7.3) H 11/09/20 06:09 Eos % (Auto) 0.0 % (0.0-4.3) 11/09/20 06:09 Baso % (Auto) 0.3 % (0.0-1.8) 11/09/20 06:09 Lymph # (Auto) 0.6 K/mm3 (1.2-5.4) L 11/09/20 06:09 Franklin # (Auto) 0.4 K/mm3 (0.0-0.8) 11/09/20 06:09 Eos # (Auto) 0.0 K/mm3 (0.0-0.4) 11/09/20 06:09 Baso # (Auto) 0.0 K/mm3 (0.0-0.1) 11/09/20 06:09 Seg Neutrophils % 81.0 % (40.0-70.0) H 11/09/20 06:09 Seg Neutrophils # 4.0 K/mm3 (1.8-7.7) 11/09/20 06:09 D-Dimer 510.39 ng/mlDDU (0-234) H 11/08/20 11:16 Sodium 141 mmol/L (137-145) 11/09/20 06:09 Potassium 4.8 mmol/L (3.6-5.0) 11/09/20 06:09 Chloride 104.2 mmol/L (98-107) 11/09/20 06:09 Carbon Dioxide 23 mmol/L (22-30) 11/09/20 06:09 Anion Gap 19 mmol/L 11/09/20 06:09 BUN 21 mg/dL (9-20) H 11/09/20 06:09 Creatinine 0.9 mg/dL (0.8-1.3) 11/09/20 06:09 Estimated GFR > 60 ml/min 11/09/20 06:09 BUN/Creatinine Ratio 23 % 11/09/20 06:09 Glucose 104 mg/dL (75-100) H 11/09/20 06:09 Hemoglobin A1c 6.1 % (4-6) H 11/09/20 06:09 Calcium 8.9 mg/dL (8.4-10.2) 11/09/20 06:09 Ferritin 539.0 ng/mL (30.0-300.0) H 11/08/20 11:16 Total Bilirubin 0.30 mg/dL (0.1-1.2) 11/08/20 11:16 AST 29 units/L (5-40) 11/08/20 11:16 ALT 20 units/L (7-56) 11/08/20 11:16 Alkaline Phosphatase 44 units/L (35-129) 11/08/20 11:16 Lactate Dehydrogenase 426 units/L (91-180) H 11/08/20 11:16 Troponin T < 0.010 ng/mL (0.00-0.029) 11/08/20 11:16 C-Reactive Protein 12.10 mg/dL (0.00-1.30) H 11/08/20 11:16 Total Protein 6.9 g/dL (6.3-8.2) 11/08/20 11:16 Albumin 3.1 g/dL (3.9-5) L 11/08/20 11:16 Albumin/Globulin Ratio 0.8 % 11/08/20 11:16 Procalcitonin 0.17 ng/mL (<0.15) 11/08/20 11:16 Coronavirus (PCR) Positive (Negative) A 11/09/20 10:25 SARS-CoV-2 IgG Ab Reactive (NonReactive) A 11/11/20 15:49 Microbiology: Microbiology 11/08/20 11:16 Peripheral/Venous Blood Culture - Preliminary NO GROWTH AFTER 72 HOURS 11/08/20 11:25 Peripheral/Venous Blood Culture - Preliminary NO GROWTH AFTER 72 HOURS Harris/IV: Voiding Method Toilet IV Catheter Type [Left INT / Saline Lock Antecubital] Active Medications - Current Medications Current Medications: Generic Name Dose Route Start Last Admin Trade Name Freq PRN Reason Stop Dose Admin Acetaminophen 650 mg 11/09/20 03:11 Acetaminophen 325 Mg Tab PO Q4H PRN Pain MILD(1-3)/Fever >100.5/BRITO Ascorbic Acid 1,000 mg 11/09/20 11:00 11/11/20 22:39 Ascorbic Acid 500 Mg Tab PO 1,000 mg BID NURA Administration Cholecalciferol 5,000 unit 11/09/20 11:00 11/11/20 11:06 Cholecalciferol (Vit D3) 5,000 Unit Tab PO 5,000 unit DAILY NURA Administration Guaifenesin 20 ml 11/11/20 11:05 11/12/20 00:35 Guaifenesin Dm 200/20 Mg Oral Liqd 10 Ml PO 20 ml Q4H PRN Administration Cough Heparin Sodium (Porcine) 5,000 unit 11/09/20 22:00 11/11/20 22:39 Heparin 5,000 Unit/1 Ml Vial SUB-Q 5,000 unit Q12HR NURA Administration Hydromorphone HCl 0.5 mg 11/09/20 03:11 Hydromorphone 1 Mg/1 Ml Inj IV Q3H PRN Pain , Severe (7-10) REMDESIVIR 100 mg/ Sodium 250 mls @ 500 mls/hr 11/12/20 21:00 Chloride IV 11/15/20 21:29 Q24HR@2100 [facility] Methylprednisolone Sodium Succinate 40 mg 11/09/20 22:00 11/12/20 05:58 Methylprednisolone Sod Succinate 40 Mg/1 Ml Inj IV 40 mg Q8HR NURA Administration Ondansetron HCl 4 mg 11/09/20 03:11 Ondansetron 4 Mg/2 Ml Inj IV Q8H PRN Nausea And Vomiting Oxycodone/Acetaminophen 1 tab 11/09/20 03:11 Oxycodone /Acetaminophen 5-325mg Tab PO Q6H PRN Pain, Moderate (4-6) Sodium Chloride 10 ml 11/09/20 10:00 11/11/20 22:39 Sodium Chloride 0.9% 10 Ml Flush Syringe IV 10 ml BID NURA Administration Sodium Chloride 10 ml 11/09/20 03:11 Sodium Chloride 0.9% 10 Ml Flush Syringe IV PRN PRN LINE FLUSH Sodium Chloride 50 ml 11/11/20 15:00 11/12/20 00:07 Sodium Chloride 0.9% 50 Ml Ivpb IV 11/14/20 21:01 Not Given Q24HR@2100 [facility] Zinc Sulfate 220 mg 11/09/20 11:00 11/11/20 22:39 Zinc Sulfate 220 Mg Cap PO 220 mg BID NURA Administration
--- NOTE | 2020-11-12 08:34 | Progress Note ---
Assessment and Plan Cultures: Blood culture no growth today SARS CoV2 PCR positive Assessment: 60 years old male without any significant medical history, admitted on 11/08/2020 secondary to 2-week history of cough and progressive shortness of breath associated with chills, generalized malaise: #Severe COVID pneumonia: Chest x-ray with bilateral infiltrates. Inflammatory markers mildly elevated, D-dimer 510. #Acute hypoxemic respiratory failure: O2 sats dropped to 89%, patient currently on 3 L. #Bradycardia: Baseline bradycardia, may get worse on remdesivir Recommendations: -Monitor bradycardia, consider cardiology consult if it worsens -Evaluation for PE and DVT -Continue steroids IV/PO daily for 10 days -Continue remdesivir for 5 days D2 of 5 -Monitor inflammatory markers - ferritin, Ddimer, CRP, LDH, markers ordered today -Monitor liver function test on Remdesivir -Continue anticoagulation per System Protocol -Prone positioning as possible -SARS CoV-2 IgG positive implying likely prolonged infection All laboratory, cultures and imaging were reviewed. Will follow Brittani Rice MD Infectious Diseases Monitoring Engineer [facility] M [phone] O [phone] Subjective Date of service: 11/12/20 Principal diagnosis: COVID Interval history: Remains on 3 L nasal cannula, no fever, noted bradycardia. Objective - Exam Narrative Exam: Physical exam deferred to minimize COVID-19 transmission during pandemic. ER and internal medicine physical examination notes reviewed. - Constitutional Vitals: Vital Signs Temp Pulse Resp BP Pulse Ox 98.3 F 65 18 102/74 91 11/12/20 05:14 11/12/20 05:14 11/12/20 05:14 11/12/20 05:14 11/12/20 05:14 Temperature -Last 24 Hours Temperature 98.3 F Temperature 98.4 F Temperature 98.8 F Temperature 98.4 F - Labs CBC & Chem 7: 11/09/20 06:09 11/09/20 06:09 Labs: Abnormal lab results 11/11/20 Range/Units 15:49 SARS-CoV-2 IgG Ab Reactive A (NonReactive)
[2020-11-12] MEDS: ASCORBIC ACID 500 MG TAB PO SCH ×2 (09:17→22:23)
[2020-11-12] MEDS: HEPARIN 5,000 UNIT/1 ML VIAL SUB-Q SCH ×2 (09:17→22:22)
[2020-11-12] MEDS: ZINC SULFATE 220 MG CAP PO SCH ×2 (09:17→22:23)
[2020-11-12] MEDS: CHOLECALCIFEROL (VIT D3) 5,000 UNIT TAB PO SCH (09:17)
[2020-11-12 10:18] LABS: C-Reactive Protein 1.3 mg/dL (0.00-1.30)
[2020-11-12 10:19] LABS: Alanine Aminotransferase 44 units/L (7-56); Albumin 3.6 g/dL (3.9-5); BUN/Creatinine Ratio 24; Blood Urea Nitrogen 22 mg/dL (9-20); Calcium 9.4 mg/dL (8.4-10.2); Hemolysis Index 22
[2020-11-12 10:26] LABS: Bilirubin,Direct < 0.2 mg/dL (0-0.2)
[2020-11-12] MEDS ORDERED: REMDESIVIR 100 MG in SODIUM CHLORIDE 0.9% 250ML 250 ML IV SCH (21:00)
[2020-11-13] MEDS: methylPREDNISolone Sod Succinate 40 MG/1 ML INJ IV SCH (05:09)
--- NOTE | 2020-11-13 08:20 | Discharge Summary ---
Providers - Providers Date of Admission: 11/10/20 10:50 Attending physician: ANA PAULA RODARTE MD 11/11/20 10:55 Consult to Physician [CONS] Routine Comment: Consulting Provider: HANNAH SALGADO Physician Instructions: Reason For Exam: covid pneumonia with hypoxia 11/12/20 14:51 Consult to Physician [CONS] Routine Comment: Consulting Provider: SHANTAL MORALES Physician Instructions: Reason For Exam: Bradycardia Primary care physician: [employer] ADMINISTRATOR Hospitalization Reason for admission: Pneumonia Condition: Stable Hospital course: 60YO Male with acute hypoxemic respiratory failure, coronavirus infection. Patient still acknowledges continued shortness of breath. Patient acknowledges mild improvement in symptoms overnight.. Patient denies fever at this time. No reported nursing events. Patient remains on supplemental oxygen at this time. 11/11: Patient remains with shortness of breath and cough. Exertional dyspnea. Was noted on oxygen at 5 L today. Will bring down to 2 L and reevaluate. Home O2 eval in a.m. Will obtain ID consultation because patient still with hypoxia likely will need to be on remdesivir. We will continue the steroid therapy at this time. Plan discussed with the patient he verbalized understanding. Also discussed with ID. 11/12: ID input noted. Continue remdesivir. Continue steroids. Wean oxygen as tolerated. Will obtain home O2 eval in a.m. Cardiology consulted for bradycardia. CTA of the chest shows pneumonitis bilateral but no pulmonary embo lism. Await ultrasound of the lower extremity to rule out DVT 11/13: Discussed with Nursing staff, patient saturation remained at 95% on room air with activity. Will discharge today. Patient clinically improved. No new complaints. Discharge expectations and continued clinical care discussed in detail. Isolation and safety for those at home also discussed with the patient. He will complete steroids therapy. Per patient HR normally runs low, runs miles daily and avid exercise. Discussed importance of cardiology eval outpatient (1) Acute respiratory failure with hypoxia (2) Multifocal pneumonia (3) Suspected COVID-19 virus infection (4) secondary coagulopathy likely secondary to COVID-19 (5) Bradycardia Disposition: - TO HOME OR SELFCARE Time spent for discharge: 35-minute Core Measure Documentation - Palliative Care Palliative Care/ Comfort Measures: Not Applicable - Core Measures Any of the following diagnoses?: none Exam - Physical Exam Narrative exam: General appearance: Present: mild distress, well-nourished - EENT Eyes: Present: PERRL, EOM intact ENT: hearing intact - Neck Neck: Present: supple - Respiratory Respiratory effort: labored Respiratory: bilateral: diminished, rhonchi - Cardiovascular Rhythm: regular Heart Sounds: Present: S1 & S2 - Extremities Extremities: no ischemia Peripheral Pulses: within normal limits - Abdominal General gastrointestinal: soft, non-tender, non-distended - Integumentary Integumentary: Present: clear, dry - Psychiatric Psychiatric: appropriate mood/affect, cooperative - Neurologic Neurologic: CNII-XII intact - Constitutional Vitals: Temp Pulse Resp BP Pulse Ox 97.8 F 59 L 20 115/72 100 11/13/20 05:21 11/13/20 05:21 11/13/20 05:21 11/13/20 05:11/13/20 08:15 Plan Activity: advance as tolerated, fall precautions Diet: low fat Special Instructions: record daily weights, record daily BP diary Additional Instructions: continue to wear mask Follow up with: SHANTAL MORALES MD [Staff Physician] - 7 Days HANNAH SALGADO MD [Staff Physician] - 7 Days PRIMARY [facility]ARE, [Primary Care Provider] - 3-5 Days Prescriptions: Dexamethasone [Decadron] 6 mg PO DAILY #6 tablet bisacodyL [Dulcolax tab] 10 mg PO QDAY PRN #30 tablet PRN Reason: Constipation guaiFENesin DM [Guaifenesin Dm Syrup] 20 ml PO Q4H PRN #10 oral.liqd PRN Reason: Cough Ascorbic Acid [Vitamin C] 1,000 mg PO BID #60 tablet Cholecalciferol (Vitamin D3) [Vitamin D3] 5,000 unit PO DAILY #30 tablet Zinc Sulfate 220 mg PO BID #60 capsule
[2020-11-13] MEDS: HEPARIN 5,000 UNIT/1 ML VIAL SUB-Q SCH (09:37)
[2020-11-13] MEDS: ZINC SULFATE 220 MG CAP PO SCH (09:37)
[2020-11-13] MEDS: CHOLECALCIFEROL (VIT D3) 5,000 UNIT TAB PO SCH (09:37)
[2020-11-13] MEDS: ASCORBIC ACID 500 MG TAB PO SCH (09:37)
--- NOTE | 2020-11-13 11:16 | Event Note ---
<TOMMIE PIEDRA - Last Filed: 11/13/20 11:14> Date: 11/13/20 Patient was discharged before cardiac consultation was completed. Recommend patient follow up as an outpatient for cardiac evaluation. <SHANTAL MORALES - Last Filed: 11/13/20 14:35> Patient was discharged from hospital before cardiac consultation could be completed. If cardiac evaluation is still needed, please refer patient to follow up in our office [phone].
--- NOTE | 2020-11-13 11:27 | Progress Note ---
Assessment and Plan Cultures: Blood culture no growth today SARS CoV2 PCR positive Assessment: 60 years old male without any significant medical history, admitted on 11/08/2020 secondary to 2-week history of cough and progressive shortness of breath associated with chills, generalized malaise: #Severe COVID pneumonia: Chest x-ray with bilateral infiltrates. Inflammatory markers mildly elevated, D-dimer 510, improving. CTA no PE #Acute hypoxemic respiratory failure: O2 sats dropped to 89%, remains on 3 L. #Bradycardia: Baseline bradycardia, may get worse on remdesivir Recommendations: -Monitor bradycardia, consider cardiology consult if it worsens -Evaluation for PE and DVT -Continue steroids IV/PO daily for 10 days -Continue remdesivir for 5 days D3 of 5 -Monitor inflammatory markers - ferritin, Ddimer, CRP, LDH, markers ordered today -Monitor liver function test on Remdesivir -Continue anticoagulation per System Protocol -Prone positioning as possible -SARS CoV-2 IgG positive implying likely prolonged infection -If clinically improves consider 6-min walking test to determine need for Home O2 All laboratory, cultures and imaging were reviewed. Will follow Brittani Rice MD Infectious Diseases Level Vial Sealer [facility] M [phone] O [phone] Subjective Date of service: 11/13/20 Principal diagnosis: COVID Interval history: Noted bradycardia. Remains on 3 L nasal cannula Objective - Exam Narrative Exam: Physical exam deferred to minimize COVID-19 transmission during pandemic. ER and internal medicine physical examination notes reviewed. - Constitutional Vitals: Vital Signs Temp Pulse Resp BP Pulse Ox 97.8 F 59 L 20 115/72 100 11/13/20 05:21 11/13/20 05:21 11/13/20 05:21 11/13/20 05:21 11/13/20 08:15 Temperature -Last 24 Hours Temperature 97.8 F Temperature 98.6 F Temperature 98.3 F - Labs CBC & Chem 7: 11/09/20 06:09 11/12/20 09:27
[2020-11-13 13:45] VITALS: BP 109/76
== END 2020-11-13 14:50 | disposition home or self-care (01) | DRG 177 ==
LOC: EDSEX → ED 09:54 → 3A 13:00 → OBSVTOIN 11-10 10:50
PROVIDERS: ADMIT Internal Medicine; ATTEND Internal Medicine
PROC: XW033E5 Introduction of Remdesivir Anti-infective into Peripheral Vein, Percutaneous Approach, New Technology Group 5 (ICD-10-PCS; principal; 2020-11-11)
DX: U07.1 COVID-19 (principal); J96.01 Acute respiratory failure with hypoxia; J12.82 Pneumonia due to coronavirus disease 2019; D68.8 Other specified coagulation defects; Z79.899 Other long term (current) drug therapy
CPT/HCPCS: 36415; 71045; 71275; 80048; 80053; 80076; 82728; 83036; 83520; 83615; 84145; 84484; 85025; 85379; 86140; 87040; 93005; 94760; 96365; 96366; 96375; G0378; J0456; J0696; J1100; J1644; J2920; J2930; Q9967; U0003